=== PATIENT | male | born 1960 | race Caucasian/White ===

== ENCOUNTER 2023-11-27 10:07 | Day surgery (SDC) | payer BC ==
[~2023-11-27] VITALS: Ht 180.3 cm; Wt 107.2 kg
[~2023-11-27 10:07] MED LIST: ALFU10TA3; ASPI81CH33 PO; CARV6.25; EZET10TA21 PO; LEVO75TA4; MIDAZOLAM INJ 2MG/2ML VIAL As Ordered ONE; PHENYLEPHRINE 10% OPHTH SOL 5ML OS PRN; RAMI10CA64; ROSU40TA63; TADA5TAB; TEST75GE; fentaNYL 100 MCG/2 ML INJECTION As Ordered ONE
[2023-11-27] MEDS: ATROPINE SULFATE 1% OPHTH SOLN 2ML BTL OS SCH (10:33)
[2023-11-27] MEDS: PHENYLEPHRINE 2.5% OPHTH SOL 2ML OS SCH (10:33)
[2023-11-27] MEDS: OFLOXACIN 0.3 % (OCUFLOX) OPTH SOL 5ML OS ONE (10:33)
[2023-11-27] MEDS: LIDOCAINE 3.5 % 1ML OPHTH TOPICAL GEL OU ONE (10:33)
[2023-11-27] MEDS: TROPICAMIDE 1% OPHTH SOLN 15ML OS SCH (10:34)
[2023-11-27] MEDS: BSS IRRIG/VANCO(10MG)/TOBRA(5MG)/EPINEPH(1:1000-0.5CC)500ML BAG-ORONLY As Ordered ONE (11:03)
[2023-11-27] MEDS: LIDOCAINE 1% SDV 5ML VIAL As Ordered ONE (11:03)
[2023-11-27] MEDS: CEFUROXIME 1MG/0.1ML INTRACAMERAL INJ As Ordered ONE (11:05)
[2023-11-27 11:20] VITALS: BP 129/75; TEMP 97.8; O2SAT 96
== END 2023-11-27 11:43 | disposition home or self-care (01) ==
LOC: M SDC 10:07
PROVIDERS: ATTEND Ophthalmology
DX: H25.12 Age-related nuclear cataract, left eye (principal); I10 Essential (primary) hypertension; I25.10 Atherosclerotic heart disease of native coronary artery without angina pectoris; E03.9 Hypothyroidism, unspecified; E78.00 Pure hypercholesterolemia, unspecified; G47.30 Sleep apnea, unspecified; Z79.899 Other long term (current) drug therapy; Z79.82 Long term (current) use of aspirin; Z79.890 Hormone replacement therapy; Z87.891 Personal history of nicotine dependence; Z95.5 Presence of coronary angioplasty implant and graft
CPT/HCPCS: 66984; J0697; J2250; J3010; V2632

== ENCOUNTER 2024-01-22 06:07 | Day surgery (SDC) | payer BC ==
[~2024-01-22] VITALS: Ht 177.8 cm; Wt 110.0 kg
[~2024-01-22 06:07] MED LIST changes: +ALFU10TA23 PO; -ALFU10TA3; -CARV6.25; +CARV6.25 PO; -LEVO75TA4; +LEVO75TA4 PO; -MIDAZOLAM INJ 2MG/2ML VIAL As Ordered ONE; +PHENYLEPHRINE 10% OPHTH SOL 5ML OD PRN; -PHENYLEPHRINE 10% OPHTH SOL 5ML OS PRN; -RAMI10CA64; +RAMI10CA64 PO; -ROSU40TA63; +ROSU40TA63 PO; -fentaNYL 100 MCG/2 ML INJECTION As Ordered ONE
[2024-01-22] MEDS: ATROPINE SULFATE 1% OPHTH SOLN 2ML BTL OD SCH (07:05)
[2024-01-22] MEDS: PHENYLEPHRINE 2.5% OPHTH SOL 2ML OD SCH (07:05)
[2024-01-22] MEDS: OFLOXACIN 0.3 % (OCUFLOX) OPTH SOL 5ML OD ONE (07:05)
[2024-01-22] MEDS: LIDOCAINE 3.5 % 1ML OPHTH TOPICAL GEL OU ONE (07:06)
[2024-01-22] MEDS: TROPICAMIDE 1% OPHTH SOLN 15ML OD SCH (07:06)
[2024-01-22] MEDS ORDERED: fentaNYL 100 MCG/2 ML INJECTION As Ordered ONE (07:10)
[2024-01-22] MEDS ORDERED: MIDAZOLAM INJ 2MG/2ML VIAL As Ordered ONE (07:10)
[2024-01-22] MEDS: BSS IRRIG/VANCO(10MG)/TOBRA(5MG)/EPINEPH(1:1000-0.5CC)500ML BAG-ORONLY As Ordered ONE (08:11)
[2024-01-22] MEDS: LIDOCAINE 1% SDV 5ML VIAL As Ordered ONE (08:11)
[2024-01-22] MEDS: CEFUROXIME 1MG/0.1ML INTRACAMERAL INJ As Ordered ONE (08:14)
[2024-01-22 08:38] VITALS: BP 111/73; TEMP 97.7; O2SAT 96
== END 2024-01-22 08:38 | disposition home or self-care (01) ==
LOC: M SDC 06:07
PROVIDERS: ATTEND Ophthalmology
DX: H25.11 Age-related nuclear cataract, right eye (principal); I10 Essential (primary) hypertension; I25.10 Atherosclerotic heart disease of native coronary artery without angina pectoris; I25.2 Old myocardial infarction; E03.9 Hypothyroidism, unspecified; E78.00 Pure hypercholesterolemia, unspecified; G47.30 Sleep apnea, unspecified; Z79.890 Hormone replacement therapy; Z79.899 Other long term (current) drug therapy; Z79.82 Long term (current) use of aspirin; N40.0 Benign prostatic hyperplasia without lower urinary tract symptoms; Z95.5 Presence of coronary angioplasty implant and graft; Z95.1 Presence of aortocoronary bypass graft
CPT/HCPCS: 66984; J0697; J2250; J3010; V2632